=== PATIENT | male | born 1965 | race Two or more races ===

== ENCOUNTER 2025-07-20 07:14 | Emergency (ER) | payer OTHER, SELFPAY ==
--- NOTE | ~2025-07-20 | XR_ITS ---
EXAMINATION: XR FOOT, RIGHT CLINICAL INFORMATION: pain COMPARISON: None available. TECHNIQUE: AP, lateral, and oblique views of the right foot. FINDINGS: Bone alignment is normal. No fracture or dislocation. Mild degenerative change with small osteophyte at the posterior talocalcaneal joint. Joint spaces otherwise normal. Small corticated soft tissue ossification jacent to the fifth metatarsal head. Bony excrescence off the distal phalanx of the medial great toe, question small bony exostosis. XR/XR foot RT min 3V IMPRESSION: No fracture or dislocation. Mild degenerative changes at the posterior talocalcaneal joint. Question small bony exostosis projecting off the medial distal phalanx of the great toe. Electronically signed by: Elise Terry MD 07/20/2025 07:59 AM EST
--- NOTE | ~2025-07-20 | XR_ITS ---
EXAMINATION: XR ANKLE, RIGHT CLINICAL INFORMATION: pain COMPARISON: None available. TECHNIQUE: AP, lateral, and mortise views of the right ankle. FINDINGS: Bone alignment is normal. No fracture or dislocation. Mild degenerative changes at the ankle joint with small osteophytes. Soft tissues are normal. XR/XR ankle RT min 3V IMPRESSION: Mild degenerative changes. Electronically signed by: Elise Terry MD 07/20/2025 07:57 AM EST
[2025-07-20 07:20] VITALS: BP 142/76; PULSE 97; RESP 20; TEMP 35.6; O2SAT 95; BMI 30.9
--- NOTE | 2025-07-20 07:43 | PC.NURSE ---
pt roomed and being taken to xray. VSS NAD right ankle to foot is red and slightly edematous CMS positive. No other complaints- denies injury
[2025-07-20 07:44] VITALS: BP 111/72; PULSE 90; RESP 16; TEMP 37; O2SAT 96
--- NOTE | 2025-07-20 07:58 | ED_ITS ---
HPI - Extremity Injury (Lower) General Chief Complaint: Extremity Injury, Lower Stated Complaint: R ankle pain Time Seen by Provider: 07/20/25 07:45 Source: patient Mode of arrival: ambulatory Limitations: no limitations History of Present Illness ED Provider: ROCCO FLORES PA-C HPI Narrative: 60 year old male presents to the ED today for evaluation of acute on chronic right ankle pain x weeks. Reports spraining his right ankle while playing softball a few weeks ago. Since then reports intermittent pain to the lateral aspect of his left ankle. Report trialing icy hot for pain. No oral pain meds. Admits he works at a [employer] where he stands on his feet for long periods of time. No new injury/trauma since initial sprain. No fever, chills. No hx IVDU. Related Data Allergies Allergy/AdvReac Type Severity Reaction Status Date / Time No Known Allergies Allergy Verified 07/20/25 07:23 Review of Systems Review of Systems: Yes all other systems are reviewed and are negative PMFSH Past Medical History Attestation statement: The following information was validated with the patient. Source: old records reviewed and nursing notes reviewed Social History Social History Advance Directives: No Advance Directives Information Provided: Yes Do you have a plan to hurt others: No Plan Physical Exam Vital Signs: Vital Signs: Last Vital Signs Temp 98.6 F 07/20/25 11:55 Pulse 90 07/20/25 11:55 Resp 16 07/20/25 11:55 BP 111/72 07/20/25 11:55 Pulse Ox 96 07/20/25 11:55 O2 Del Method Room Air 07/20/25 11:55 BMI result Body Mass Index 30.9 Vital signs stable, afebrile General: Well appearing, in no acute distress. Skin: Warm, dry, intact. No rashes or lesions. Head: Normocephalic, atraumatic. EENT: Hearing is intact b/l. Conjunctiva clear. PERRLA. EOM intact. Moist mucous membranes.? Cardiac: Chest wall symmetric. RRR. Lungs: Normal respiratory effort without accessory muscle use. CTA bilaterally Back: No midline spinous or paraspinal tenderness. No step off deformity. Ext: + right ankle with minimal swelling noted to lateral aspect. No deformity. No overlying erythema, open wounds. Full ROM intact to right ankle and all toes without reported pain. Mildly tender to palpation of lateral aspect of right ankle without palpable crepitus, deformity, fluctuance. No tenderness noted over plantar fascia or Achilles tendon insertion, no calf tenderness. Ambulating with steady gait. 2+ DP pulse intact. Neuro: AOx3. Normal speech. Course Course Course Narrative: X-rays without fracture. Concern for initial sprain weeks ago, continues to re-injure it while working, not letting the area heal properly. Place patient in walking boot. Given crutches for comfort. Educated on rice therapy/ supportive care. Patient has remained stable throughout ED visit today. Discussed worrisome signs and symptoms and when to return to the ED. All questions answered at this time. Patient is agreeable with disposition and stable for discharge. Medications Administered Discontinued Medications Generic Name Dose Route Start Last Admin Trade Name Freq PRN Reason Stop Dose Admin Ibuprofen 600 mg 07/20/25 08:10 07/20/25 08:20 Ibuprofen 600 Mg Tablet PO 07/20/25 08:11 600 mg ONCE ONE Administration Medical Decision Making Medical Decision Making [facility] Narrative: 60 year old male presents to the ED today for evaluation of acute on chronic right ankle pain x weeks. Patient is hypertensive, afebrile. on exam, right ankle with minimal swelling noted to lateral aspect. No deformity. No overlying erythema, open wounds. Full ROM intact to right ankle and all toes without reported pain. Mildly tender to palpation of lateral aspect of right ankle without palpable crepitus, deformity, fluctuance. No tenderness noted over plantar fascia or Achilles tendon insertion, no calf tenderness. Ambulating with steady gait. 2+ DP pulse intact. Differential diagnosis includes MSK sprain/strain, fracture, contusion, bone spur, osteoarthritis. Presentation not consistent with gout, pseudogout. Unlikely neurovascular compromise, threat to limb, compartment syndrome. Plan for imaging, pain control, and disposition. Differential Diagnosis Differential Diagnoses: The differential diagnosis associated with the presentation includes as above. Admission/Observation not indicated. Independent Interpretation I performed an independent interpretation of an: Plain X-Ray Interpretation: xray without fracture Radiology Impression Discussion of test interpretation with radiology: I have reviewed the radiologist's reading. Radiologist Impression: Procedure(s): XR foot RT min 3V Accession Number(s): [id number] cc: Sherri Osborne MD; Physician,None ~ Reason for Exam: pain EXAMINATION: XR FOOT, RIGHT CLINICAL INFORMATION: pain COMPARISON: None available. TECHNIQUE: AP, lateral, and oblique views of the right foot. FINDINGS: Bone alignment is normal. No fracture or dislocation. Mild degenerative change with small osteophyte at the posterior talocalcaneal joint. Joint spaces otherwise normal. Small corticated soft tissue ossification jacent to the fifth metatarsal head. Bony excrescence off the distal phalanx of the medial great toe, question small bony exostosis. XR/XR foot RT min 3V IMPRESSION: No fracture or dislocation. Mild degenerative changes at the posterior talocalcaneal joint. Question small bony exostosis projecting off the medial distal phalanx of the great toe. Electronically signed by: Elise Terry MD 07/20/2025 07:59 AM EST RP Procedure(s): XR ankle RT min 3V Accession Number(s): [id number] cc: Sherri Osborne MD; Physician,None ~ Reason for Exam: pain EXAMINATION: XR ANKLE, RIGHT CLINICAL INFORMATION: pain COMPARISON: None available. TECHNIQUE: AP, lateral, and mortise views of the right ankle. FINDINGS: Bone alignment is normal. No fracture or dislocation. Mild degenerative changes at the ankle joint with small osteophytes. Soft tissues are normal. XR/XR ankle RT min 3V IMPRESSION: Mild degenerative changes. Electronically signed by: Elise Terry MD 07/20/2025 07:57 AM EST RP External Record Review External record reviewed: Inpatient record Prescription Management I considered prescription management with: Pain Medication Social Determinants Patient?s care significantly limited by Social Determinants of Health including: Other Social Determinant of Health Procedures Orthopedic Splinting/Casting Injury #1: Side: right Lower Extremity Injury Location: ankle Lower Extremity Immobilizer: boot orthosis Other Orthopedic Equipment: crutches Critical Care Time Critical Care Time Critical Care Time: No Discharge Plan Discharge Clinical Impression: Right ankle sprain Patient Disposition: Home, Self-Care Instructions: Ankle Sprain (ED), Walking Boot (ED) Additional Instructions: You were evaluated in the ED for right ankle pain. The xrays of your right ankle/foot show degenerative changes. No fractures. You have an ankle sprain. We have placed you in a walking boot for comfort. You may bear weight as tolerated. You have been provided crutches, use these as needed. Take Motrin/Tylenol at home. Utilize RICE therapy - rest, ice, compress, elevated. Follow up with PCP. Return with any new/worsening symptoms. In the case of an emergency call 911. Referrals: Physician,None [Primary Care Provider, Medical] Interventions: ED Discharge Assessment Last Done: 07/20/25 11:55 Discharge Date/Time: 07/20/25 11:55 Print Language: Surinamese
[2025-07-20 11:55] VITALS: BP 111/72; PULSE 90; RESP 16; TEMP 37; O2SAT 96
== END 2025-07-20 11:55 | disposition home or self-care (01) ==
PROVIDERS: Emergency Provider Emergency Medicine
DX: S93.401A Sprain of unspecified ligament of right ankle, initial encounter (principal); X58.XXXA Exposure to other specified factors, initial encounter; Y93.64 Activity, baseball; Y92.9 Unspecified place or not applicable
CPT/HCPCS: 73610; 73630; 99283; 99284

== ENCOUNTER → 2025-07-20 07:25 | Outpatient (BNV) | payer OTHER, SELFPAY | PROVIDERS: Emergency Provider Emergency Medicine; Visit Provider Radiology Diagnostic Radiology | DX: M19.071 Primary osteoarthritis, right ankle and foot (principal) | CPT/HCPCS: 73610; 73630 ==